=== PATIENT | male | born 2000 | race American Indian/Alaskan Native ===

== ENCOUNTER 2020-03-13 18:41 | Emergency (ER) | payer SELFPAY ==
[2020-03-13] MEDS ORDERED: Amoxicillin 500 MG Cap PO ONE (19:26)
--- NOTE | 2020-03-13 19:33 | EDM.PDOC ---
ED HPI GENERAL MEDICAL PROBLEM - General Chief Complaint: ENT Problem Stated Complaint: EARACHE Time Seen by Provider: 03/13/20 19:20 Source of Information: Reports: Patient History Limitations: Reports: No Limitations - History of Present Illness INITIAL COMMENTS - FREE TEXT/NARRATIVE: Right ear pain today, ibuprofen one time helped. feels plugged. 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 [No Known Home Meds] 03/13/20 [History] Past Medical History - Past Health History Medical/Surgical History: Denies Medical/Surgical History Social & Family History - Family History Family Medical History: Noncontributory - Tobacco Use Smoking Status *Q: Never Smoker Second Hand Smoke Exposure: No - Caffeine Use Caffeine Use: Reports: Energy Drinks - Alcohol Use Date of Last Drink: 03/06/20 - Recreational Drug Use Recreational Drug Use: No ED ROS ENT - Review of Systems Review Of Systems: Comprehensive ROS is negative, except as noted in HPI. ED EXAM, ENT - Physical Exam Exam: See Below Exam Limited By: No Limitations General Appearance: Alert, No Apparent Distress Eye Exam: Bilateral Eye: EOMI Ears: Normal External Exam, Normal Canal, TM Erythema, TM Fluid Nose: Normal Inspection Mouth/Throat: Normal Inspection Head: Atraumatic, Normocephalic Neck: Normal Inspection, Lymphadenopathy (R) (mild anterior) Respiratory/Chest: No Respiratory Distress Cardiovascular: Normal Peripheral Pulses, Regular Rate, Rhythm Extremities: Normal Range of Motion Psychiatric: Normal Affect Skin: Warm, Dry, Intact, Normal Color Course - Vital Signs Last Recorded V/S: Last Vital Signs Temp 97.6 F 03/13/20 18:49 Pulse 84 03/13/20 18:49 Resp 17 03/13/20 18:49 BP 147/62 H 03/13/20 18:49 Pulse Ox 98 03/13/20 18:49 - Orders/Labs/Meds Meds: Medications Discontinued Medications Generic Name Dose Route Start Last Admin Trade Name Freq PRN Reason Stop Dose Admin Amoxicillin 500 mg 03/13/20 19:26 Amoxil PO 03/13/20 19:27 ONETIME ONE Departure - Departure Time of Disposition: 19:31 Disposition: Home, Self-Care 01 Condition: Good Clinical Impression: Otitis media Qualifiers: Otitis media type: serous Chronicity: acute Laterality: right Recurrence: non- recurrent Qualified Code(s): H65.01 - Acute serous otitis media, right ear - Discharge Information *PRESCRIPTION DRUG MONITORING PROGRAM REVIEWED*: No *COPY OF PRESCRIPTION DRUG MONITORING REPORT IN PATIENT NOLBERTO: No Instructions: Otitis Media, Adult, [id number] Additional Instructions: alternate tylenol 650mg and ibuprofen 600mg every 4 hours as needed for discomfort amoxicillin 500mg one three itme daily for 10 days follow up in clinic if not improving Sepsis Event Note (ED) - Evaluation Sepsis Screening Result: No Definite Risk - Focused Exam Vital Signs: Vital Signs Temp Pulse Resp BP Pulse Ox 03/13/20 18:49 97.6 F 84 17 147/62 H 98
== END 2020-03-13 19:35 | disposition home or self-care (01) ==
LOC: DL.ED 18:41
DX: H65.01 Acute serous otitis media, right ear (principal)
CPT/HCPCS: 99282; A9270